=== PATIENT | female | born 1990 | race African-American/Black ===

== ENCOUNTER 2020-02-13 18:51 | Emergency (ER) | payer OTHER ==
[~2020-02-13] VITALS: Ht 162.6 cm; Wt 61.2 kg
[~2020-02-13 18:51] MED LIST: ACETAMINOPHEN325 M1 PO; AVELOX 400 MG400 M1 PO; BACTRIM DS TAB1 EACH PO; CIPROFLOXACIN500 M1 PO; DULCOLAX STOOL100 MG PO; HUMALOG100 UNIT/1 SQ; HYDROCODON-ACE1 EAC7 PO; LANTUS SQ; MIRALAX255 GM PO; NORCO 5-325 TA1 EACH PO
[2020-02-13] MEDS ORDERED: CELEXA 10 MG TA10 M1 PO (18:57)
[2020-02-13 19:09] LABS: URINE BILIRUBIN NEGATIVE (Negative); URINE BLOOD NEGATIVE (Negative); URINE CLARITY CLEAR; URINE COLOR YELLOW; URINE GLUCOSE-RANDOM* TRACE (Negative); URINE KETONES NEGATIVE (Negative); URINE PROTEIN (DIPSTICK) TRACE (Negative)
[2020-02-13 19:11] LABS: URINE LEUKOCYTES-REFLEX 1+ (Negative); URINE NITRITE-REFLEX POSITIVE (Negative)
[2020-02-13 19:21] LABS: CASTS None Seen /LPF (None Seen); CRYSTALS None Seen /LPF (None Seen); SQUAMOUS 0-3 Few /LPF (0-3); URINE RBC None Seen /HPF (0-2); URINE WBC-REFLEX >25 Many /HPF (0-5)
[2020-02-13] MEDS ORDERED: PHENAZOPYRIDIN200 M2 PO (19:28)
[2020-02-13] MEDS ORDERED: KEFLEX500 M1 PO (19:28)
[2020-02-13 19:38] VITALS: BP 111/77
== END 2020-02-13 19:37 | disposition home or self-care (01) ==
LOC: ER 18:51
PROVIDERS: Physician Assistant
DX: N39.0 Urinary tract infection, site not specified (principal); R51.9 Headache, unspecified; R11.0 Nausea; E11.9 Type 2 diabetes mellitus without complications; Z79.899 Other long term (current) drug therapy; Z79.4 Long term (current) use of insulin; Z88.0 Allergy status to penicillin